=== PATIENT | female | born 1995 | race Caucasian/White ===

== ENCOUNTER 2023-10-13 14:48 | Emergency (ER) | payer OTHER ==
[~2023-10-13] VITALS: Ht 160 cm; Wt 52.6 kg
[2023-10-13 15:01] VITALS: BP 123/63; PULSE 69; RESP 16; TEMP 99.6; O2SAT 98
[2023-10-13] MEDS ORDERED: CETI-366 PO (15:24)
[2023-10-13] MEDS ORDERED: HYD1C TP (15:24)
[2023-10-13 15:34] VITALS: BP 122/62; PULSE 69; RESP 16; TEMP 98; O2SAT 98
== END 2023-10-13 15:34 | disposition home or self-care (01) ==
LOC: MED 14:48
DX: R21 Rash and other nonspecific skin eruption (principal); Z79.899 Other long term (current) drug therapy
CPT/HCPCS: 99283